=== PATIENT | male | born 1955 | race Caucasian/White ===

== ENCOUNTER 2018-11-26 06:23 | Inpatient (IN) | payer OTHER ==
[2018-11-23 12:39] VITALS: BMI 33.3
[2018-11-26] MEDS ORDERED: fentaNYL CITRATE 250 MCG/5 ML VIAL ONE (06:50)
[2018-11-26] MEDS ORDERED: ceFAZolin SODIUM 1 GM VIAL ONE ×4 (06:52→17:34)
[2018-11-26] MEDS ORDERED: VANCOMYCIN 1,000 MG VIAL (RESTRICTED TO ID ONLY) ONE ×2 (06:52→07:16)
[2018-11-26] MEDS ORDERED: ONDANSETRON 4 MG/2 ML VIAL ONE (06:52)
[2018-11-26] MEDS ORDERED: SUCCINYLCHOLINE CHLORIDE 200 MG/10 ML SYRINGE ONE (06:52)
[2018-11-26] MEDS ORDERED: PROPOFOL 20 ML ONE ×13 (06:52→10:21)
[2018-11-26] MEDS ORDERED: DEXAMETHASONE SOD PHOSPHATE 4 MG/1 ML VIAL ONE (06:52)
[2018-11-26] MEDS ORDERED: MIDAZOLAM HCL 2 MG/2 ML SINGLE DOSE VIAL ONE ×3 (06:52→07:16)
[2018-11-26] MEDS ORDERED: TRANEXAMIC ACID 1000 MG/10 ML VIAL ONE (06:52)
[2018-11-26] MEDS ORDERED: LIDOCAINE HCL/PF 2% SDV 5ML VIAL ONE (06:52)
[2018-11-26] MEDS ORDERED: CEFAZOLIN 2 GM/D5W 2 GM/50 ML ML IVPB ONE (07:01)
[2018-11-26] MEDS ORDERED: VANCOMYCIN 1 GRAM (PRE-DOCKED) 1,000 MG/250 ML BAG IVPB ONE (07:01)
[2018-11-26] MEDS ORDERED: MORPHINE 5 MG/10 ML AMP - FOR COMPOUNDING USE ONLY ONE (07:13)
[2018-11-26] MEDS ORDERED: BUPIVACAINE HCL/PF 0.5% (5MG/ML) 10 ML VIAL ONE (07:15)
[2018-11-26] MEDS ORDERED: BUPIVACAINE LIPOSOME/PF (EXPAREL) 266 MG/20 ML VIAL ONE (07:15)
[2018-11-26] MEDS ORDERED: NALOXONE HCL 0.4 MG/ML VIAL IVPUSH PRN (07:33)
[2018-11-26] MEDS ORDERED: ONDANSETRON 4 MG/2 ML VIAL IVPUSH PRN ×2 (07:33)
[2018-11-26] MEDS ORDERED: THROMBIN (BOVINE) 5,000 UNIT VIAL TP ONE ×3 (07:43→10:38)
[2018-11-26] MEDS ORDERED: HEPARIN NA (PORCINE) 5,000 UNITS/ML 1ML VIAL ONE ×3 (07:43→09:40)
[2018-11-26] MEDS: ACETAMINOPHEN 325 MG TABLET (FP) PO SCH ×3 (07:45→22:40)
[2018-11-26] MEDS ORDERED: VANCOMYCIN 1,000 MG VIAL (RESTRICTED TO ID ONLY) IVPB ONE (07:45)
[2018-11-26] MEDS ORDERED: ceFAZolin SODIUM 1 GM VIAL IVPB ONE ×3 (09:00→18:20)
[2018-11-26] MEDS ORDERED: ROCURONIUM BROMIDE 50 MG/5 ML SYRINGE ONE (09:39)
[2018-11-26] MEDS ORDERED: NEOSTIGMINE METHYLSULFATE 0.5 MG/1 ML - 10 ML MDV ONE (10:32)
[2018-11-26] MEDS ORDERED: GLYCOPYRROLATE 0.2 MG/1 ML VIAL ONE (10:33)
[2018-11-26] MEDS ORDERED: GELATIN, ABSORBABLE 12-7MM EACH SPONGE TP ONE (10:38)
[2018-11-26] MEDS ORDERED: SODIUM CHLORIDE 0.9% P/F 10 ML VIAL IJ ONE (11:19)
--- NOTE | 2018-11-26 13:00 | SURG ---
Surgery Postulant Note Postulant: Ricardo Mcclelland PA-C Date of Service: 11/26/18 Diagnosis: L4/5, L5/S1 Stenosis with instability; lower extremity radiculopathy Procedure: Lumbar laminectomy L4/5, L5/S1. Posterior Lumbar Interbody Fusion L5/S1. Instrumentation of Posterolateral Arthrodesis. Auto/Allograft. Left iliac crest bone marrow aspirate. Neuromonitoring. I was present for the entirety of the operative procedure. For further detail, please refer to operative report. Visit type - Case Type Case Type: Scheduled - New patient This patient is new to me today: Yes Date on this admission: 11/26/18
--- NOTE | 2018-11-26 13:13 | OP ---
Operative Note - Note: Operative Date: 11/26/18 Pre-Operative Diagnosis: L4/5 L5 L/S1 Stenosis with instability back pain Operation: L4/5/S1 Laminectomy. L5/S1 Posterior Lumbar Interbody Fusion. Instrumented Posterolateral Arthrodesis Auto/Allograft and BMAC. Last mobile segment L4/5 on Xray I am labelling this as L5/S1 Implants: [employer] Surgeon: Vance Boateng Agricultural Pilot: Ricardo Mcclelland Anesthesia: General Specimens Removed: L5/S1 Disc Estimated Blood Loss (mls): 400 Drains & Tubes with Location: Hemovac 06/05 Fluid Volume Replaced (mls): 1,500 Operative Report Dictated: Yes
[2018-11-26] MEDS: LACTATED RINGERS SOLUTION 1,000 ML IV SCH ×2 (15:45→16:39)
--- NOTE | 2018-11-26 16:06 | CONSULT ---
Consultation: REQUESTING PROVIDER: Tasneem CONSULT REQUEST: We have been asked to medically evaluate this patient for post op spine HISTORY OF PRESENT ILLNESS: 63 year old gentleman history of hypertension and hyperlipidemia brought to ICU post-operatively for L4/5/S1 Laminectomy. L5/S1 Posterior Lumbar Interbody Fusion. Instrumented Posterolateral Arthrodesis Auto/Allograft and BMAC done by Dr. Sher. Currently patient does not complain of any pain, chest pain, shortness of breath, nausea, vomiting or diarrhea. Prior to the surgery, patient reports that he had severe back pain that was preventing him from standing or ambulating. He currently has no numbness or tingling. Has not yet passed gas, but tolerated clear liquids. REVIEW OF SYSTEMS: CONSTITUTIONAL: Absent: fever, chills, diaphoresis, generalized weakness, malaise, loss of appetite, weight change HEENT: Absent: rhinorrhea, nasal congestion, throat pain, throat swelling, difficulty swallowing, mouth swelling, ear pain, eye pain, visual changes CARDIOVASCULAR: Absent: chest pain, syncope, palpitations, irregular heart rate, lightheadedness , peripheral edema RESPIRATORY: Absent: cough, shortness of breath, dyspnea with exertion, orthopnea, wheezing, stridor, hemoptysis GASTROINTESTINAL: Absent: abdominal pain, abdominal distension, nausea, vomiting, diarrhea, constipation, melena, hematochezia GENITOURINARY: Absent: dysuria, frequency, urgency, hesitancy, hematuria, flank pain, genital pain MUSCULOSKELETAL: Absent: myalgia, arthralgia, joint swelling, back pain, neck pain SKIN: Absent: rash, itching, pallor HEMATOLOGIC/IMMUNOLOGIC: Absent: easy bleeding, easy bruising, lymphadenopathy, frequent infections ENDOCRINE: Absent: unexplained weight gain, unexplained weight loss, heat intolerance, cold intolerance NEUROLOGIC: Absent: headache, focal weakness or paresthesias, dizziness, unsteady gait, seizure, mental status changes, bladder or bowel incontinence PSYCHIATRIC: Absent: anxiety, depression, suicidal or homicidal ideation, hallucinations. PHYSICAL EXAMINATION Vital Signs - 24 hr 11/26/18 11/26/18 11/26/18 07:15 07:18 07:26 Temperature 97.8 F 97.8 F 97.8 F Pulse Rate 69 69 69 Respiratory 20 20 20 Rate Blood Pressure 133/69 133/69 133/69 O2 Sat by Pulse Oximetry (%) 0711/26/18 11/26/18 07:38 12:40 12:55 Temperature 98.0 F 98.3 F Pulse Rate 81 98 H Respiratory 15 16 Rate Blood Pressure 109/68 106/62 O2 Sat by Pulse 96 99 100 Oximetry (%) 11/26/18 11/26/18 11/26/18 13:10 13:25 13:49 Temperature 97.8 F 98.2 F 98.2 F Pulse Rate 64 65 63 Respiratory 16 16 16 Rate Blood Pressure 113/63 111/62 111/65 O2 Sat by Pulse 100 100 Oximetry (%) 11/26/18 15:00 Temperature Pulse Rate Respiratory Rate Blood Pressure O2 Sat by Pulse 100 Oximetry (%) GENERAL: A&Ox3, no acute distress EYES: PERRLA, EOMI ENT: Moist mucus membranes NECK: No JVD LUNGS: CTA, no wheezes HEART: RRR, no murmurs ABDOMEN: Soft, nontender, BS diminished MUSCULOSKELETAL: No CVA Tenderness EXTREMITIES: 2+ pulses, no edema. NEUROLOGICAL: Cranial nerves II-XII intact. No deficits. Drain in place ~ 150cc serosanguinous fluid Laboratory Results - last 24 hr 11/26/18 11/26/18 06:33 08:10 Blood Type B POSITIVE B POSITIVE Antibody Screen Negative Active Medications Generic Name Dose Route Start Last Admin Trade Name Freq PRN Reason Stop Dose Admin Acetaminophen 650 mg 11/26/18 07:45 Tylenol - PO Q6H NURYS Atorvastatin Calcium 40 mg 11/26/18 22:00 Lipitor - PO HS NURYS Diphenhydramine HCl 25 mg 11/26/18 07:33 Benadryl Injection - IVPUSH ONCE PRN FOR ITCHING Fentanyl 50 mcg 11/26/18 07:33 Sublimaze Injection - IVPUSH [id number] PRN PAIN-PACU ORDER X 4 DOSES ONLY Lactated Ringer's 1,000 mls @ 75 mls/hr 11/26/18 07:45 Lactated Ringers Solution IV ASDIR NURYS Lactated Ringer's 1,000 mls @ 125 mls/hr 11/26/18 12:45 Lactated Ringers Solution IV ASDIR NURYS Cefazolin Sodium 1 gm/ 50 mls @ 100 mls/hr 11/26/18 18:00 Dextrose IVPB 11/27/18 17:59 Q8H-IV NURYS Losartan Potassium 25 mg 11/27/18 10:00 Cozaar - PO DAILY NURYS Naloxone HCl 0.4 mg 11/26/18 07:33 Narcan - IVPUSH ONCE PRN Sedation Ondansetron HCl 4 mg 11/26/18 07:33 Zofran Injection IVPUSH ONCE PRN NAUSEA Ondansetron HCl 4 mg 11/26/18 07:33 Zofran Injection IVPUSH Q6H PRN NAUSEA AND/OR VOMITING Oxycodone HCl 5 mg 11/27/18 07:33 Roxicodone - PO Q3H PRN Mild Pain 1-3 Oxycodone HCl 10 mg 11/27/18 07:33 Roxicodone - PO Q3H PRN Moderate Pain 4-6 Oxycodone HCl 10 mg 11/26/18 10:00 Oxycontin - PO BID NURYS ASSESSMENT/PLAN: 63 year old gentleman history of hypertension and hyperlipidemia brought to ICU post-operatively L4/5/S1 Laminectomy. L5/S1 Posterior Lumbar Interbody Fusion. Instrumented Posterolateral Arthrodesis Auto/Allograft and BMAC done by Dr. Sher. Neurological -post op spine surgery, reccs by Dr. Sher -Drain in place -pain management, although no pain at the moment Cardiovascular -hypertension controlled on losartan Pulmonary -no active issues Gastrointestinal -no gas, but patient has been tolerating diet Renal -no active issues Dispo: Can likely downgrade to floor, will d/w Dr. sher Visit type - Emergency Visit Emergency Visit: Yes ED Registration Date: 11/26/18 Care time: The patient presented to the Emergency Department on the above date and was hospitalized for further evaluation of their emergent condition. - New Patient This patient is new to me today: Yes Date on this admission: 11/26/18 - Critical Care Critical Care patient: Yes Total Critical Care Time (in minutes): 36 Critical Care Statement: The care of this patient involved high complexity decision making to prevent further life threatening deterioration of the patient 's condition and/or to evaluate & treat vital organ system(s) failure or risk of failure.
[2018-11-26] MEDS: oxyCODONE HCL 10 MG SUSTAINED ACTING TABLET PO SCH ×2 (16:38→22:38)
[2018-11-26] MEDS ORDERED: DEXTROSE 5%-WATER - 50 ML IVPB ONE (17:34)
[2018-11-26] MEDS: CEFAZOLIN 1 GM in DEXTROSE 5%-WATER - 50 ML IVPB SCH (17:44)
[2018-11-26] MEDS ORDERED: METOCLOPRAMIDE HCL INJECTION 10 MG/2 ML VIAL IVPUSH ONE (18:15)
--- NOTE | 2018-11-26 19:51 | OP ---
DATE OF OPERATION: 11/26/2018 SURGEON: Vance Boateng MD CAREER DEVELOPMENT FACILITATOR: MAGED Arizmendi PREOPERATIVE DIAGNOSIS: Spinal stenosis, L3, 4, and 5; with questionable fusion at L5-S1. POSTOPERATIVE DIAGNOSIS: Spinal stenosis, L3, 4, and 5; with instability at L3-4-5-S1. OPERATION PERFORMED: 1. Left laminectomy with undercutting facetectomy, L3-4-5. 2. Right laminectomy with facetectomy, L3-4-5. 3. Posterior lumbar interbody fusion with interbody cage, L4-5. 4. Pedicle screw instrumentation, L3-4-5, left and right-hand side. 5. Posterolateral arthrodesis, L3-4-5-S1, left and right-hand side. 6. Complex wound closure of 25 cm. 7. Use of biplane fluoroscopy intraoperative neuromonitoring as well as aspiration of bone marrow aspirate concentrate. ANESTHESIA: general. ANTIBIOTICS GIVEN: Kefzol 2 g, vancomycin 1 g preoperative. OPERATION DETAILS: Patient correctly identified, brought in to the operating room, placed prone on a Eris table. The lumbar spine was prepped and draped in the routine manner with Betadine scrub solution, wiped off with alcohol, DuraPrep applied. Timeout was called. Imaging was available for intraoperative evaluation. Antibiotics were given, 2 g Kefzol and 1 g vancomycin, 1 g of tranexamic acid given. Another 1 g of Kefzol was given intraoperatively at the time of seating the instrumentation. A midline incision utilized from the tip of the spinous process of L2 to S1. The dissection was taken subperiosteally down the spinous process of the facet joints to expose the transverse processes of L3-4-5-S1. Intraoperative x-rays revealed the appropriate areas for fusion. Further dissection revealed that the L5-S1 complex was solidly auto-fused. There was absolutely no movement. This area, however, was decompressed as well. Effectively, in counting, we began to count the L5 as S1, so the fusion therefore was an L4-5-S1 fusion, but autologous bone graft was placed into the L5-S1 interspace as well to ensure that this fusion remains solid. Laminectomies of L5 and 4 and partial 3 were performed. The entire theca was completely freed by the use of Leksell rongeurs both on the left and right-hand side. A superior facetectomy was facilitated and performed at L4 and L5 as well as partially at L3. This was done using Leksell rongeurs, Kerrison up cuts to free the bone posteriorly and then the inferior facets and pars interarticularis were imploded into the vertebral canal at L4 and L5, both left and right-hand side, thus freeing the entire theca as well as the appropriate neural elements throughout. At L5-S1, the mobile disk was identified. A retraction of the theca was performed using a simple nerve root retractor. An annulotomy was performed into the L5-S1 annulus. The disk was shaved using ravi, pituitary rongeurs, and serrated curettes. The entire disk was removed right down to healthy endplate. The interbody space was packed with bone graft. This was the bone that was harvested from the posterior elements, removed in a mill. Once the packings were complete, the cage measuring size 11/40 LnK, which itself was packed with bone, was then gently driven into the interspace between L5 and S1, and driven all the way deep into the space and verified on lateral fluoroscopic x-ray. The fluoroscopic x-ray also helped with positioning of screws on the endplates. Each pedicle was drilled with 4.5 drill. Each one was palpated with a ball-tip feeler. Screws measured 40 x 6.5, screws effectively L4-5-S1, and the main picture of this could be adjusted, in radiological terms, to L3-4-5. This depends on the interpretation of the last mobile segment. The screws were tested completely safe in terms of neuromonitoring numbers. The screws were inserted. The rods were applied to the tulips of the screw heads and fixed with the appropriate caps. The torque device was utilized, 1 crosslink applied. This provided a complete solid fusion of L4-5-S1. The interspace intertransverse plane, L4-5-S1, was packed with autologous as well as expanded allograft bone into the intertransverse plane. The aspirate was left posterior ilium. This was spun down for the CD34 cells, and helped pack this material into the posterior intertransverse plane. The wounds were thoroughly lavaged. The muscle was appropriately trimmed to get rid of fibrillated muscle. Closure with muscle 1 Vicryl, fascia 1 Vicryl, subcutaneous 1 and 2-0 Vicryl, skin terry. Drainage: A 1/8-inch Hemovac x1 inserted. OVERALL COMMENTS: Operation went smoothly without any complications. Tight stenosis encountered. MD HUNTER Rivera/[id number]
[2018-11-26] MEDS ORDERED: ATORVASTATIN CA 40 MG TABLET (FP) PO SCH (22:00)
[2018-11-27] MEDS ORDERED: DEXTROSE 5%-WATER - 50 ML IVPB ONE ×2 (01:49→08:39)
[2018-11-27] MEDS ORDERED: ceFAZolin SODIUM 1 GM VIAL ONE ×2 (01:49→08:38)
[2018-11-27] MEDS: ACETAMINOPHEN 325 MG TABLET (FP) PO SCH ×4 (01:58→20:03)
[2018-11-27] MEDS: CEFAZOLIN 1 GM in DEXTROSE 5%-WATER - 50 ML IVPB SCH ×2 (01:59→09:28)
[2018-11-27] MEDS: LACTATED RINGERS SOLUTION 1,000 ML IV SCH ×2 (02:00→12:16)
[2018-11-27 06:19] LABS: HEMATOCRIT 40.4 % (35.4-49); HEMOGLOBIN 12.7 GM/dL (11.7-16.9); MCH 24.7 pg (25.7-33.7); MCHC 31.5 g/dl (32.0-35.9); MEAN CELL VOLUME 78.4 fl (80-96); MEAN PLT VOLUME 8.8 fl (7.5-11.1); PLATELET COUNT 230 K/MM3 (134-434); RBC 5.15 M/mm3 (4.00-5.60); RDW 14.2 % (11.9-15.9); WHITE BLOOD COUNT 15.1 K/mm3 (4.0-10.0)
[2018-11-27 06:48] LABS: BLOOD UREA NITROGEN 9.8 mg/dL (7-18); CREATININE 0.6 mg/dL (0.55-1.3); POTASSIUM 3.9 mmol/L (3.5-5.1)
[2018-11-27] MEDS ORDERED: oxyCODONE HCL 5 MG TABLET PO PRN ×5 (07:33→16:47)
--- NOTE | 2018-11-27 08:10 | SPA.POSTOP ---
- POST-OP NOTE POD #1 s/p Lumbar laminectomy L4/5, L5/S1. Posterior Lumbar Interbody Fusion L5/S1. Instrumentation of Posterolateral Arthrodesis. Auto/Allograft. Left iliac crest bone marrow aspirate. Neuromonitoring. No acute events since surgical procedure per RN notes. In bed with HOB at 15 degrees. C/o COLVIN since he awoke this morning. ICU Resident states he administered Tylenol PO about 2 hours ago...no relief. Has mild incisional tenderness. Pain is 4/10. Pain managed well via pre-op block by anasthesia followed by Juan spinal. Denies n/v/f/c, CP, palpitations or photophobia. Denies h/o migraines or auras. Last Vital Signs Temp Pulse Resp BP Pulse Ox 98.2 F 73 15 127/68 100 11/26/18 13:49 11/26/18 22:00 11/26/18 22:00 11/27/18 06:00 11/26/18 21:00 CBC, BMP 11/27/18 05:51 11/27/18 05:51 OUTPUT TREND 11/26/18 11/26/18 11/26/18 11/27/18 16:01 18:54 19:09 06:36 Hemovac 95 0 Snider 250 250 700 General: No acute distress. Pulm: CTA bilat Cor: RRR Abd: Soft. Non-tender. No distention Back: Dressing c/d/i. Hemovac on suction. No hematoma : Snider to gravity Neuro: GMNVI bilat LE: Soft, non-tender bilat. SCD's bilat. Problem List - Problems (1) Degenerative lumbar spinal stenosis Assessment/Plan: POD #1 s/p Lumbar laminectomy L4/5, L5/S1. Posterior Lumbar Interbody Fusion L5/ S1. Instrumentation of Posterolateral Arthrodesis. Auto/Allograft. Left iliac crest bone marrow aspirate. Neuromonitoring. Anasthesia for continued pain management Tylenol for fever > 100.3F Monitor COLVIN DVT PPX via bilat SCDs Incentive Spirometer Case Management for possible Rehab placement Physical Therapy I/Os f/u Lumbar Xray OOB to chair with assist Code(s): M48.061 - SPINAL STENOSIS, LUMBAR REGION WITHOUT NEUROGENIC ROLAN (2) HTN (hypertension) Code(s): I10 - ESSENTIAL (PRIMARY) HYPERTENSION (3) Hyperlipidemia Code(s): E78.5 - HYPERLIPIDEMIA, UNSPECIFIED Visit type - Case Type Case Type: Scheduled
[2018-11-27] MEDS: oxyCODONE HCL 10 MG SUSTAINED ACTING TABLET PO SCH ×2 (09:28→21:51)
[2018-11-27] MEDS: oxyCODONE HCL 5 MG TABLET PO PRN ×3 (09:35→17:47)
[2018-11-27] MEDS ORDERED: LOSARTAN POTASSIUM 25 MG TABLET PO SCH (10:00)
[2018-11-27] MEDS ORDERED: diazePAM 5 MG TABLET PO ONE (12:01)
--- NOTE | 2018-11-27 12:17 | PN ---
Progress Note, Physician Chief Complaint: C/O back pain denies chest pain, palpitations, nausea, vomiting, diarrhea - Current Medication List Current Medications: Active Medications Acetaminophen (Tylenol -) 650 mg PO Q6H [facility] Last Admin: 11/27/18 01:58 Dose: Not Given Atorvastatin Calcium (Lipitor -) 40 mg PO HS [facility] Last Admin: 11/26/18 22:38 Dose: 40 mg Diphenhydramine HCl (Benadryl Injection -) 25 mg IVPUSH ONCE PRN PRN Reason: FOR ITCHING Fentanyl (Sublimaze Injection -) 50 mcg IVPUSH [id number] PRN PRN Reason: PAIN-PACU ORDER X 4 DOSES ONLY Lactated Ringer's (Lactated Ringers Solution) 1,000 mls @ 125 mls/hr IV ASDIR [facility] Last Admin: 11/26/18 15:45 Dose: 125 mls/hr Cefazolin Sodium 1 gm/ (Dextrose) 50 mls @ 100 mls/hr IVPB Q8H-IV [facility] Stop: 11/27/18 17:59 Last Admin: 11/27/18 09:28 Dose: 100 mls/hr Losartan Potassium (Cozaar -) 25 mg PO DAILY [facility] Last Admin: 11/27/18 09:28 Dose: 25 mg Naloxone HCl (Narcan -) 0.4 mg IVPUSH ONCE PRN PRN Reason: Sedation Ondansetron HCl (Zofran Injection) 4 mg IVPUSH ONCE PRN PRN Reason: NAUSEA Ondansetron HCl (Zofran Injection) 4 mg IVPUSH Q6H PRN PRN Reason: NAUSEA AND/OR VOMITING Oxycodone HCl (Roxicodone -) 5 mg PO Q3H PRN PRN Reason: Mild Pain 1-3 Last Admin: 11/27/18 06:00 Dose: 5 mg Oxycodone HCl (Roxicodone -) 10 mg PO Q3H PRN PRN Reason: Moderate Pain 4-6 Last Admin: 11/27/18 09:35 Dose: 10 mg Oxycodone HCl (Oxycontin -) 10 mg PO BID [facility] Last Admin: 11/27/18 09:28 Dose: 10 mg - Objective Vital Signs: Vital Signs Temperature 99.3 F 11/27/18 10:15 Pulse Rate 80 11/27/18 10:15 Respiratory Rate 16 11/27/18 10:15 Blood Pressure 114/58 L 11/27/18 10:15 O2 Sat by Pulse Oximetry (%) 99 11/27/18 09:00 Constitutional: Yes: Well Nourished, No Distress Eyes: Yes: WNL HENT: Yes: WNL Neck: Yes: Tenderness Cardiovascular: Yes: WNL Respiratory: Yes: WNL Gastrointestinal: Yes: WNL Genitourinary: Yes: WNL Musculoskeletal: Yes: Back Pain Extremities: Yes: WNL Edema: No Peripheral Pulses WNL: Yes Integumentary: Yes: WNL Wound/Incision: Yes: Clean/Dry, Well Approximated, Dressing Dry and Intact Neurological: Yes: WNL ...Motor Strength: WNL Psychiatric: Yes: WNL Labs: CBC, BMP 11/27/18 05:51 11/27/18 05:51 Assessment/Plan POD #1 s/p Lumbar laminectomy L4/5, L5/S1. Posterior Lumbar Interbody Fusion L5/ S1. Instrumentation of Posterolateral Arthrodesis. Auto/Allograft. Left iliac crest bone marrow aspirate. cont pain management. incentive spirometry. cont oxycodone, tylenol. -GI, DVT prophylaxis. -low anion gap: from reduced protein intake. -HTN: on losartan. -ondasteron PRN for nausea -PT/OT/OOB as tolerated -oral diet. no BM. colace, senna added. -
--- NOTE | 2018-11-27 12:19 | PN ---
Progress Note, Physician Chief Complaint: C/O back pain denies chest pain, palpitations, nausea, vomiting, diarrhea - Current Medication List Current Medications: Active Medications Acetaminophen (Tylenol -) 650 mg PO Q6H [facility] Last Admin: 11/27/18 01:58 Dose: Not Given Atorvastatin Calcium (Lipitor -) 40 mg PO HS [facility] Last Admin: 11/26/18 22:38 Dose: 40 mg Diphenhydramine HCl (Benadryl Injection -) 25 mg IVPUSH ONCE PRN PRN Reason: FOR ITCHING Fentanyl (Sublimaze Injection -) 50 mcg IVPUSH [id number] PRN PRN Reason: PAIN-PACU ORDER X 4 DOSES ONLY Lactated Ringer's (Lactated Ringers Solution) 1,000 mls @ 125 mls/hr IV ASDIR [facility] Last Admin: 11/27/18 12:16 Dose: 125 mls/hr Cefazolin Sodium 1 gm/ (Dextrose) 50 mls @ 100 mls/hr IVPB Q8H-IV [facility] Stop: 11/27/18 17:59 Last Admin: 11/27/18 09:28 Dose: 100 mls/hr Losartan Potassium (Cozaar -) 25 mg PO DAILY [facility] Last Admin: 11/27/18 09:28 Dose: 25 mg Naloxone HCl (Narcan -) 0.4 mg IVPUSH ONCE PRN PRN Reason: Sedation Ondansetron HCl (Zofran Injection) 4 mg IVPUSH ONCE PRN PRN Reason: NAUSEA Ondansetron HCl (Zofran Injection) 4 mg IVPUSH Q6H PRN PRN Reason: NAUSEA AND/OR VOMITING Oxycodone HCl (Roxicodone -) 5 mg PO Q3H PRN PRN Reason: Mild Pain 1-3 Last Admin: 11/27/18 06:00 Dose: 5 mg Oxycodone HCl (Roxicodone -) 10 mg PO Q3H PRN PRN Reason: Moderate Pain 4-6 Last Admin: 11/27/18 09:35 Dose: 10 mg Oxycodone HCl (Oxycontin -) 10 mg PO BID [facility] Last Admin: 11/27/18 09:28 Dose: 10 mg - Objective Vital Signs: Vital Signs Temperature 99.3 F 11/27/18 10:15 Pulse Rate 80 11/27/18 10:15 Respiratory Rate 16 11/27/18 10:15 Blood Pressure 114/58 L 11/27/18 10:15 O2 Sat by Pulse Oximetry (%) 99 11/27/18 09:00 Constitutional: Yes: Well Nourished Eyes: Yes: WNL HENT: Yes: WNL Neck: Yes: WNL Cardiovascular: Yes: WNL Respiratory: Yes: WNL Gastrointestinal: Yes: WNL Genitourinary: Yes: WNL Musculoskeletal: Yes: Back Pain Extremities: Yes: WNL Edema: No Peripheral Pulses WNL: Yes Integumentary: Yes: WNL Wound/Incision: Yes: Clean/Dry, Well Approximated Neurological: Yes: WNL ...Motor Strength: WNL Psychiatric: Yes: WNL Labs: CBC, BMP 11/27/18 05:51 11/27/18 05:51 Assessment/Plan POD #1 s/p Lumbar laminectomy L4/5, L5/S1. Posterior Lumbar Interbody Fusion L5/ S1. Instrumentation of Posterolateral Arthrodesis. Auto/Allograft. Left iliac crest bone marrow aspirate.
[2018-11-27] MEDS ORDERED: CYCLOBENZAPRINE HCL 10 MG TABLET (FP) PO ONE (12:37)
[2018-11-27] MEDS ORDERED: MORPHINE SULFATE 2 MG/ML VIAL IVPUSH ONE (12:45)
--- NOTE | 2018-11-27 12:51 | PN ---
Teaching Attending Note Name of Resident: Frank Hare ATTENDING PHYSICIAN STATEMENT I saw and evaluated the patient. I reviewed the resident's note and discussed the case with the resident. I agree with the resident's findings and plan as documented. SUBJECTIVE: Patient seen and examined in the ICU. Awake and alert. Significant discomfort behind his head into his neck. Feels like muscle tension. No CP or SOB. Intake & Output 11/24/18 11/25/18 11/26/18 11/27/18 23:59 23:59 23:59 23:59 Intake Total 2175 1046 Output Total 1295 700 Balance 880 346 Last Vital Signs Temp Pulse Resp BP Pulse Ox 99.3 F 88 16 130/86 99 11/27/18 10:15 11/27/18 12:00 11/27/18 12:00 11/27/18 12:00 11/27/18 09:00 Active Medications Acetaminophen (Tylenol -) 650 mg PO Q6H [facility] Last Admin: 11/27/18 01:58 Dose: Not Given Atorvastatin Calcium (Lipitor -) 40 mg PO HS [facility] Last Admin: 11/26/18 22:38 Dose: 40 mg Diphenhydramine HCl (Benadryl Injection -) 25 mg IVPUSH ONCE PRN PRN Reason: FOR ITCHING Docusate Sodium (Colace -) 100 mg PO TID [facility] Fentanyl (Sublimaze Injection -) 50 mcg IVPUSH [id number] PRN PRN Reason: PAIN-PACU ORDER X 4 DOSES ONLY Lactated Ringer's (Lactated Ringers Solution) 1,000 mls @ 125 mls/hr IV ASDIR [facility] Last Admin: 11/27/18 12:16 Dose: 125 mls/hr Cefazolin Sodium 1 gm/ (Dextrose) 50 mls @ 100 mls/hr IVPB Q8H-IV [facility] Stop: 11/27/18 17:59 Last Admin: 11/27/18 09:28 Dose: 100 mls/hr Losartan Potassium (Cozaar -) 25 mg PO DAILY [facility] Last Admin: 11/27/18 09:28 Dose: 25 mg Naloxone HCl (Narcan -) 0.4 mg IVPUSH ONCE PRN PRN Reason: Sedation Ondansetron HCl (Zofran Injection) 4 mg IVPUSH ONCE PRN PRN Reason: NAUSEA Ondansetron HCl (Zofran Injection) 4 mg IVPUSH Q6H PRN PRN Reason: NAUSEA AND/OR VOMITING Oxycodone HCl (Roxicodone -) 5 mg PO Q3H PRN PRN Reason: Mild Pain 1-3 Last Admin: 11/27/18 06:00 Dose: 5 mg Oxycodone HCl (Roxicodone -) 10 mg PO Q3H PRN PRN Reason: Moderate Pain 4-6 Last Admin: 11/27/18 09:35 Dose: 10 mg Oxycodone HCl (Oxycontin -) 10 mg PO BID [facility] Last Admin: 11/27/18 09:28 Dose: 10 mg Oxycodone HCl (Roxicodone -) 15 mg PO Q3H PRN PRN Reason: PAIN LEVEL 7 - 10 Senna (Senna -) 2 tab PO HS PRN PRN Reason: CONSTIPATION GENERAL: Awake and alert, uncomfortable due to pain EYES: PERRLA, EOMI ENT: Moist mucus membranes NECK: No JVD LUNGS: CTA, no wheezes HEART: RRR, no murmurs ABDOMEN: Soft, nontender, BS diminished MUSCULOSKELETAL: No CVA Tenderness EXTREMITIES: 2+ pulses, no edema. NEUROLOGICAL: Non-focal Laboratory Results - last 24 hr 11/27/18 11/27/18 05:51 05:51 WBC 15.1 H RBC 5.15 Hgb 12.7 Hct 40.4 MCV 78.4 L MCH 24.7 L MCHC 31.5 L RDW 14.2 Plt Count 230 MPV 8.8 Sodium 137 Potassium 3.9 Chloride 103 Carbon Dioxide 28 Anion Gap 6 L BUN 9.8 Creatinine 0.6 Est GFR (CKD-EPI)AfAm 123.15 Est GFR (CKD-EPI)NonAf 106.25 Random Glucose 87 Calcium 8.0 L ASSESSMENT/PLAN: POD #1 L4/5/S1 Laminectomy. L5/S1 Posterior Lumbar Interbody Fusion. Instrumented Posterolateral Arthrodesis Auto/Allograft and BMAC Hypertension Hyperlipidemia Pain control Trial of Valium O2 as needed Incentive Spirometry Monitor drain output PO as tolerated D/C prado when OOB VTE prophylaxis PT Floor when cleared by surgery Dr Vargas
[2018-11-27] MEDS ORDERED: DOCUSATE SODIUM 100 MG CAPSULE (FP) PO SCH ×2 (14:00→22:00)
--- NOTE | 2018-11-27 14:45 | PN ---
Physical Exam: SUBJECTIVE: Patient seen and examined at the bedside. Patient complained of tight neck pain 9/10. Denied any back pain, headaches, dizziness, weakness, numbness, tingling, visual changes, nausea, vomiting, chest pain, palpitations, sob. OBJECTIVE: Vital Signs Period Temp Pulse Resp BP Sys/[place] Pulse Ox Last 24 Hr 99 F-99.3 F 64-98 15-20 102-130/53-86 99-100 GENERAL: The patient is awake, alert, and fully oriented, in mild distress due to pain. HEAD: Normal with no signs of trauma. EYES: PERRL, extraocular movements intact, sclera anicteric, conjunctiva clear. No ptosis. NECK: Limited range of motion due to patient pain. Trachea midline, supple. LUNGS: Breath sounds equal, clear to auscultation bilaterally, no wheezes, no crackles, no accessory muscle use. HEART: Regular rate and rhythm, S1, S2 without murmur, rub or gallop. ABDOMEN: Soft, nontender, nondistended, normoactive bowel sounds, no guarding, no rebound, no hepatosplenomegaly, no masses. EXTREMITIES: 2+ pulses, warm, well-perfused, no edema. NEUROLOGICAL: Cranial nerves II through XII grossly intact. 5/5 muscle strength throughout, no sensory deficits. Normal speech, gait not observed. PSYCH: Normal mood, normal affect. SKIN: Back dressing intact, site of incisions clean. Drain from site with 95 cc drainage. Warm, dry, normal turgor Laboratory Results - last 24 hr 11/27/18 11/27/18 05:51 05:51 WBC 15.1 H RBC 5.15 Hgb 12.7 Hct 40.4 MCV 78.4 L MCH 24.7 L MCHC 31.5 L RDW 14.2 Plt Count 230 MPV 8.8 Sodium 137 Potassium 3.9 Chloride 103 Carbon Dioxide 28 Anion Gap 6 L BUN 9.8 Creatinine 0.6 Est GFR (CKD-EPI)AfAm 123.15 Est GFR (CKD-EPI)NonAf 106.25 Random Glucose 87 Calcium 8.0 L Active Medications Generic Name Dose Route Start Last Admin Trade Name Freq PRN Reason Stop Dose Admin Acetaminophen 650 mg 11/26/18 07:45 11/27/18 13:48 Tylenol - PO 650 mg Q6H NURYS Administration Atorvastatin Calcium 40 mg 11/26/18 22:00 11/26/18 22:38 Lipitor - PO 40 mg HS NURYS Administration Diphenhydramine HCl 25 mg 11/26/18 07:33 Benadryl Injection - IVPUSH ONCE PRN FOR ITCHING Docusate Sodium 100 mg 11/27/18 14:00 11/27/18 13:48 Colace - PO 100 mg TID NURYS Administration Fentanyl 50 mcg 11/26/18 07:33 Sublimaze Injection - IVPUSH [id number] PRN PAIN-PACU ORDER X 4 DOSES ONLY Lactated Ringer's 1,000 mls @ 125 mls/hr 11/26/18 12:45 11/27/18 12:16 Lactated Ringers Solution IV 125 mls/hr ASDIR NURYS Administration Cefazolin Sodium 1 gm/ 50 mls @ 100 mls/hr 11/26/18 18:00 11/27/18 09:28 Dextrose IVPB 11/27/18 17:59 100 mls/hr Q8H-IV NURYS Administration Losartan Potassium 25 mg 11/27/18 10:00 11/27/18 09:28 Cozaar - PO 25 mg DAILY NURYS Administration Naloxone HCl 0.4 mg 11/26/18 07:33 Narcan - IVPUSH ONCE PRN Sedation Ondansetron HCl 4 mg 11/26/18 07:33 Zofran Injection IVPUSH ONCE PRN NAUSEA Ondansetron HCl 4 mg 11/26/18 07:33 Zofran Injection IVPUSH Q6H PRN NAUSEA AND/OR VOMITING Oxycodone HCl 5 mg 11/27/18 07:33 11/27/18 06:00 Roxicodone - PO 5 mg Q3H PRN Administration Mild Pain 1-3 Oxycodone HCl 10 mg 11/27/18 07:33 11/27/18 13:49 Roxicodone - PO 10 mg Q3H PRN Administration Moderate Pain 4-6 Oxycodone HCl 10 mg 11/26/18 10:00 11/27/18 09:28 Oxycontin - PO 10 mg BID NURYS Administration Oxycodone HCl 15 mg 11/27/18 12:42 Roxicodone - PO Q3H PRN PAIN LEVEL 7 - 10 Senna 2 tab 11/27/18 22:00 Senna - PO HS PRN CONSTIPATION ASSESSMENT/PLAN: Grazyna Quintero is a 63 year old male with a PMHx of HTN and HLD brought to ICU post-operatively for L4/5/S1 Laminectomy for monitoring. NEURO - post-op patient physical exam within normal limits - neurological exam every shift - pain management protocol in place for pain - Valium and Flexeril for neck spasms - lumbar spine x-ray s/p fusion - early ambulation - follow recommendations of surgery team CARDIO - continue home losartan - continue home atorvastatin RESPIRATORY - incentive spirometry prophylaxis RENAL - stable GI - monitor for passing of flatus - senna - colace - prado in place - to be removed when patient out of bed HEMATOLOGY - elevated WBC likely due to post-op reaction ID - post op cefazolin prophylaxis FEN - no fluids - electrolytes within normal limites - regular diet Prophylaxis - early ambulation DISPO - stable for transfer to med-surg Problem List - Problems (1) Degenerative lumbar spinal stenosis Code(s): M48.061 - SPINAL STENOSIS, LUMBAR REGION WITHOUT NEUROGENIC ROLAN (2) HTN (hypertension) Code(s): I10 - ESSENTIAL (PRIMARY) HYPERTENSION (3) Hyperlipidemia Code(s): E78.5 - HYPERLIPIDEMIA, UNSPECIFIED Visit type - Emergency Visit Emergency Visit: No - New Patient This patient is new to me today: Yes Date on this admission: 11/27/18 - Critical Care Critical Care patient: Yes Total Critical Care Time (in minutes): 36 Critical Care Statement: The care of this patient involved high complexity decision making to prevent further life threatening deterioration of the patient 's condition and/or to evaluate & treat vital organ system(s) failure or risk of failure.
[2018-11-27] MEDS ORDERED: ONDANSETRON 4 MG/2 ML VIAL IVPUSH PRN ×2 (16:47→17:26)
--- NOTE | 2018-11-27 17:14 | PATH ---
Surgical Pathology Report Patient Name: KAM OCAMPO [facility]. Rec. #: [id number] /Age/Gender: 1955 (Age: 63) / M Account: [id number] Location: [facility] LABEL SEWER Taken: 11/26/2018 Received: 11/26/2018 Reported: 11/27/2018 Physicians: Vance Boateng M.D. Specimen(s) Received DISC L4-L5-S1 Clinical History Spinal stenosis Final Diagnosis DISC, L4-5, S1, POSTERIOR INTERBODY FUSION: BENIGN INTERVERTEBRAL DISC TISSUE. Electronically Signed Rosa Graves M.D. Gross Description Received in formalin labeled "disc L4-L5," is a 3.0 x 2.5 x 0.3 cm aggregate of barrios and fragments of fibrocartilaginous tissue. A health and safety representative portion is submitted in one cassette. DL/11/26/2018 saudi11/26/2018
[2018-11-27] MEDS ORDERED: ACETAMINOPHEN 325 MG TABLET (FP) PO SCH (19:45)
[2018-11-27] MEDS: DOCUSATE SODIUM 100 MG CAPSULE (FP) PO SCH (21:51)
[2018-11-27] MEDS: ATORVASTATIN CA 40 MG TABLET (FP) PO SCH (21:51)
[2018-11-27] MEDS ORDERED: oxyCODONE HCL 10 MG SUSTAINED ACTING TABLET PO SCH (22:00)
[2018-11-27] MEDS ORDERED: ATORVASTATIN CA 40 MG TABLET (FP) PO SCH (22:00)
[2018-11-27] MEDS ORDERED: SENNOSIDES 8.6MG TABLET (FP) PO PRN ×3 (22:00)
[2018-11-28] MEDS: oxyCODONE HCL 5 MG TABLET PO PRN ×5 (01:32→19:36)
[2018-11-28] MEDS: ACETAMINOPHEN 325 MG TABLET (FP) PO SCH ×4 (02:22→19:38)
[2018-11-28] MEDS: DOCUSATE SODIUM 100 MG CAPSULE (FP) PO SCH ×3 (06:15→22:21)
--- NOTE | 2018-11-28 07:41 | SPA.POSTOP ---
- POST-OP NOTE POD #2 s/p Lumbar laminectomy L4/5, L5/S1. Posterior Lumbar Interbody Fusion L5/S1. Instrumentation of Posterolateral Arthrodesis. Auto/Allograft. Left iliac crest bone marrow aspirate. Neuromonitoring. No acute events over past 24 hours per RN notes. Patient transferred out of ICU to 6th floor Currently, sitting in chair at bedside. C/o incisional tenderness. Pain managed well via pre-op block by anasthesia followed by Duramorph spinal. Yesterday, patient c/o of severe COLVIN/neck pain...he felt more muscular in nature. This morning, feels much better as the COLVIN and neck pain almost resolved. He has gotten OOB and ambulated to doorway. Denies n/v/f/c, CP, palpitations or photophobia. Denies h/o migraines or auras. Last Vital Signs Temp Pulse Resp BP Pulse Ox 98.2 F 80 18 132/77 94 L // 03:00 // 03:00 11/28/18 03:00 11/28/18 03:00 // 22:00 General: No acute distress. Pulm: CTA bilat Cor: RRR Abd: Soft. Non-tender. No distention Back: Dressing c/d/i. Hemovac on suction w/ minimal output. No hematoma : Snider to gravity (clear) Neuro: GMNVI bilat LE: Soft, non-tender bilat. SCD's bilat. Problem List - Problems (1) Degenerative lumbar spinal stenosis Assessment/Plan: POD #2 s/p Lumbar laminectomy L4/5, L5/S1. Posterior Lumbar Interbody Fusion L5/ S1. Instrumentation of Posterolateral Arthrodesis. Auto/Allograft. Left iliac crest bone marrow aspirate. Neuromonitoring. Anasthesia for continued pain management Tylenol for fever > 100.3F DVT PPX via bilat SCDs Incentive Spirometer Case Management for possible Rehab placement Physical Therapy Radha dc'd on rounds OOB to chair Above plan discussed with Dr. Vance Boateng and agrees Code(s): M48.061 - SPINAL STENOSIS, LUMBAR REGION WITHOUT NEUROGENIC ROLAN (2) HTN (hypertension) Code(s): I10 - ESSENTIAL (PRIMARY) HYPERTENSION (3) Hyperlipidemia Code(s): E78.5 - HYPERLIPIDEMIA, UNSPECIFIED Visit type - Case Type Case Type: Scheduled
[2018-11-28] MEDS: LOSARTAN POTASSIUM 25 MG TABLET PO SCH (09:06)
[2018-11-28] MEDS: oxyCODONE HCL 10 MG SUSTAINED ACTING TABLET PO SCH ×2 (09:07→22:21)
[2018-11-28] MEDS ORDERED: LOSARTAN POTASSIUM 25 MG TABLET PO SCH (10:00)
--- NOTE | 2018-11-28 11:25 | PN ---
Progress Note (short form) - Note Progress Note: Post op day@.S/P L3-L5 Decompression with fusion under GA with TLIP block uneventful.Patient stable.No any anesthesia related problem.Patient Dc from the anesthesia care.
--- NOTE | 2018-11-28 16:01 | PN ---
Progress Note, Physician Chief Complaint: C/O back pain denies chest pain, palpitations, nausea, vomiting, diarrhea - Current Medication List Current Medications: Active Medications Acetaminophen (Tylenol -) 650 mg PO Q6H [facility] Last Admin: 11/28/18 13:14 Dose: 650 mg Atorvastatin Calcium (Lipitor -) 40 mg PO HS [facility] Last Admin: 11/27/18 21:51 Dose: 40 mg Docusate Sodium (Colace -) 100 mg PO TID [facility] Last Admin: 11/28/18 13:14 Dose: 100 mg Losartan Potassium (Cozaar -) 25 mg PO DAILY [facility] Last Admin: 11/28/18 09:06 Dose: 25 mg Ondansetron HCl (Zofran Injection) 4 mg IVPUSH Q6H PRN PRN Reason: NAUSEA AND/OR VOMITING Oxycodone HCl (Roxicodone -) 5 mg PO Q3H PRN PRN Reason: Mild Pain 1-3 Last Admin: 11/28/18 01:32 Dose: 5 mg Oxycodone HCl (Roxicodone -) 10 mg PO Q3H PRN PRN Reason: Moderate Pain 4-6 Last Admin: 11/28/18 13:14 Dose: 10 mg Oxycodone HCl (Roxicodone -) 15 mg PO Q3H PRN PRN Reason: PAIN LEVEL 7 - 10 Last Admin: 11/27/18 17:47 Dose: 15 mg Oxycodone HCl (Oxycontin -) 10 mg PO BID [facility] Last Admin: 11/28/18 09:07 Dose: 10 mg Senna (Senna -) 2 tab PO HS PRN PRN Reason: CONSTIPATION - Objective Vital Signs: Vital Signs Temperature 98.1 F 11/28/18 14:57 Pulse Rate 100 H 11/28/18 14:57 Respiratory Rate 20 11/28/18 09:00 Blood Pressure 151/75 11/28/18 14:57 O2 Sat by Pulse Oximetry (%) 94 L 11/28/18 09:40 Constitutional: Yes: Well Nourished, No Distress Eyes: Yes: WNL HENT: Yes: WNL Neck: Yes: WNL Cardiovascular: Yes: WNL Respiratory: Yes: WNL Gastrointestinal: Yes: WNL Genitourinary: Yes: WNL Musculoskeletal: Yes: Joint Stiffness Extremities: Yes: WNL Edema: No Peripheral Pulses WNL: Yes Integumentary: Yes: WNL Wound/Incision: Yes: Clean/Dry, Well Approximated, Dressing Dry and Intact Neurological: Yes: WNL ...Motor Strength: WNL Psychiatric: Yes: WNL Labs: CBC, BMP 11/27/18 05:51 11/27/18 05:51 Assessment/Plan POD #2 s/p Lumbar laminectomy L4/5, L5/S1. Posterior Lumbar Interbody Fusion L5/ S1. Instrumentation of Posterolateral Arthrodesis. Auto/Allograft. Left iliac crest bone marrow aspirate. cont pain management. incentive spirometry. cont oxycodone, tylenol. -GI, DVT prophylaxis. -low anion gap: from reduced protein intake. -HTN: on losartan. well controlled. -ondasteron PRN for nausea -HLD: on atorvastatin -PT/OT/OOB as tolerated -oral diet. no BM. coljeremy, senna added. -blood work and meds reviewed. assessment and plan discussed with pt and his . phone calls answered. DC to rehab hopefully on Monday
[2018-11-28] MEDS ORDERED: KETOROLAC TROMETHAMINE 30 MG/1 ML VIAL IVPUSH ONE (17:30)
--- NOTE | 2018-11-28 17:38 | PN ---
Progress Note (short form) - Note Progress Note: POD#2 C/O mild incisional pain Bilateral leg pain Vitals as per chart CVS Stable RESP Clear ABD Distended Soft No flatus NEURO Wound dressing dry Neuro at base line Walked in the room PLAN Mobilise with PT PAIN mx add 1 dose Toradol Review leg pain tomorrow If still present for post op Ct scan
[2018-11-28] MEDS: ATORVASTATIN CA 40 MG TABLET (FP) PO SCH (22:21)
[2018-11-29] MEDS: oxyCODONE HCL 5 MG TABLET PO PRN ×5 (01:45→22:16)
[2018-11-29] MEDS: ACETAMINOPHEN 325 MG TABLET (FP) PO SCH ×5 (01:45→20:40)
[2018-11-29] MEDS: DOCUSATE SODIUM 100 MG CAPSULE (FP) PO SCH ×3 (06:12→21:29)
[2018-11-29] MEDS: oxyCODONE HCL 10 MG SUSTAINED ACTING TABLET PO SCH ×2 (10:20→21:30)
[2018-11-29] MEDS: LOSARTAN POTASSIUM 25 MG TABLET PO SCH (10:20)
--- NOTE | 2018-11-29 11:15 | PN ---
Progress Note, Physician Chief Complaint: C/O back pain denies chest pain, palpitations, nausea, vomiting, diarrhea - Current Medication List Current Medications: Active Medications Acetaminophen (Tylenol -) 650 mg PO Q6H [facility] Last Admin: 11/29/18 10:21 Dose: 650 mg Atorvastatin Calcium (Lipitor -) 40 mg PO HS [facility] Last Admin: 11/28/18 22:21 Dose: 40 mg Docusate Sodium (Colace -) 100 mg PO TID [facility] Last Admin: 11/29/18 06:12 Dose: 100 mg Losartan Potassium (Cozaar -) 25 mg PO DAILY [facility] Last Admin: 11/29/18 10:20 Dose: 25 mg Ondansetron HCl (Zofran Injection) 4 mg IVPUSH Q6H PRN PRN Reason: NAUSEA AND/OR VOMITING Oxycodone HCl (Roxicodone -) 5 mg PO Q3H PRN PRN Reason: Mild Pain 1-3 Last Admin: 11/28/18 01:32 Dose: 5 mg Oxycodone HCl (Roxicodone -) 10 mg PO Q3H PRN PRN Reason: Moderate Pain 4-6 Last Admin: 11/28/18 13:14 Dose: 10 mg Oxycodone HCl (Roxicodone -) 15 mg PO Q3H PRN PRN Reason: PAIN LEVEL 7 - 10 Last Admin: 11/29/18 06:14 Dose: 15 mg Oxycodone HCl (Oxycontin -) 10 mg PO BID [facility] Last Admin: 11/29/18 10:20 Dose: 10 mg Senna (Senna -) 2 tab PO HS PRN PRN Reason: CONSTIPATION - Objective Vital Signs: Vital Signs Temperature 98.3 F 11/29/18 07:55 Pulse Rate 92 H 11/29/18 07:55 Respiratory Rate 21 H 11/29/18 07:55 Blood Pressure 130/60 11/29/18 07:55 O2 Sat by Pulse Oximetry (%) 95 11/28/18 21:00 Constitutional: Yes: Well Nourished Eyes: Yes: WNL HENT: Yes: WNL Neck: Yes: WNL Cardiovascular: Yes: WNL Respiratory: Yes: WNL Gastrointestinal: Yes: WNL Genitourinary: Yes: WNL Musculoskeletal: Yes: Joint Stiffness Extremities: Yes: WNL Edema: No Peripheral Pulses WNL: Yes Integumentary: Yes: WNL Wound/Incision: Yes: Clean/Dry, Well Approximated, Dressing Dry and Intact Neurological: Yes: WNL ...Motor Strength: WNL Psychiatric: Yes: WNL Labs: CBC, BMP 11/27/18 05:51 11/27/18 05:51 Assessment/Plan POD #3 s/p Lumbar laminectomy L4/5, L5/S1. Posterior Lumbar Interbody Fusion L5/ S1. Instrumentation of Posterolateral Arthrodesis. Auto/Allograft. Left iliac crest bone marrow aspirate. cont pain management. incentive spirometry. cont oxycodone, tylenol. -GI, DVT prophylaxis. -low anion gap: from reduced protein intake. -HTN: on losartan. well controlled. -ondasteron PRN for nausea -HLD: on atorvastatin -PT/OT/OOB as tolerated -oral diet. no BM. timmy kohler added. -blood work and meds reviewed. assessment and plan discussed with pt and his . phone calls answered. AM labs ordered. DC to rehab possibly tomorrow
--- NOTE | 2018-11-29 13:05 | PN ---
Progress Note (short form) - Note Progress Note: POD#3 C/O mild incisional pain Bilateral leg pain much improved mild anterior thigh pain ?meralgia post op Vitals as per chart CVS Stable RESP Clear ABD Distended Soft Passed flatus NEURO Wound dressing dry Neuro at base line Walked in the room PLAN Mobilise with PT PAIN mx add 1 dose Toradol D/C Planning Adira
[2018-11-29] MEDS: ATORVASTATIN CA 40 MG TABLET (FP) PO SCH (21:30)
[2018-11-30] MEDS: oxyCODONE HCL 5 MG TABLET PO PRN ×4 (01:46→19:46)
[2018-11-30] MEDS: ACETAMINOPHEN 325 MG TABLET (FP) PO SCH ×4 (01:48→19:45)
[2018-11-30] MEDS: DOCUSATE SODIUM 100 MG CAPSULE (FP) PO SCH ×3 (06:07→21:04)
[2018-11-30 07:19] LABS: BASO % 0.7 % (0-2.0); HEMATOCRIT 38.1 % (35.4-49); HEMOGLOBIN 12.2 GM/dL (11.7-16.9); LYMPH % 16.9 % (8-40); MCH 25.1 pg (25.7-33.7); MCHC 32.1 g/dl (32.0-35.9); MONO % 13.4 % (3.8-10.2); PLATELET COUNT 298 K/MM3 (134-434); RBC 4.89 M/mm3 (4.00-5.60); WHITE BLOOD COUNT 10.6 K/mm3 (4.0-10.0)
[2018-11-30 08:21] LABS: ALBUMIN 2.4 g/dl (3.4-5.0); BLOOD UREA NITROGEN 14.7 mg/dL (7-18); CALCIUM 8.3 mg/dL (8.5-10.1); CREATININE 0.5 mg/dL (0.55-1.3); POTASSIUM 4.1 mmol/L (3.5-5.1); TOT PROT 6.7 g/dl (6.4-8.2)
[2018-11-30] MEDS: LOSARTAN POTASSIUM 25 MG TABLET PO SCH (09:00)
[2018-11-30] MEDS: oxyCODONE HCL 10 MG SUSTAINED ACTING TABLET PO SCH ×2 (09:00→21:04)
--- NOTE | 2018-11-30 09:12 | DS ---
"Physical Examination Vital Signs: Vital Signs Temperature 97.9 F 11/30/18 06:00 Pulse Rate 85 11/30/18 06:00 Respiratory Rate 20 11/29/18 20:50 Blood Pressure 146/79 11/30/18 06:00 O2 Sat by Pulse Oximetry (%) 96 11/29/18 21:00 Constitutional: Yes: Well Nourished Eyes: Yes: WNL HENT: Yes: WNL Neck: Yes: WNL Cardiovascular: Yes: WNL Respiratory: Yes: WNL Gastrointestinal: Yes: WNL Renal/: Yes: WNL Musculoskeletal: Yes: Back Pain Extremities: Yes: WNL Edema: No Peripheral Pulses WNL: Yes Integumentary: Yes: WNL Wound/Incision: Yes: Clean/Dry, Well Approximated Neurological: Yes: WNL ...Motor Strength: WNL Labs: CBC, BMP 11/30/18 05:05 11/30/18 05:05 Discharge Summary Reason For Visit: SPINAL STENOSIS Current Active Problems Degenerative lumbar spinal stenosis (Acute) HTN (hypertension) (Acute) Hyperlipidemia (Acute) Condition: Stable - Instructions Diet, Activity, Other Instructions: Post Operative Instructions Physical Activity Resume your normal everyday activity as tolerated. No heavy lifting or exercise until seen by your surgeon. You may walk unlimited amounts and climb stairs. You may resume driving the car when you feel safe and comfortable behind the wheel and you are no longer wearing your brace. Do not operate a vehicle while taking narcotic medication. Brace You had back surgery, wear TLSO Brace whenever out of bed. May remove to sleep and shower. Wound Care Keep your incision clean, dry and covered at all times. Apply an occlusive dressing (Saran wrap or Tegaderm) when showering to avoid getting your incision wet. Do not submerge incision or apply ointments or creams. The terry will be removed in the office in 10-14 days post-op. Diet There are no dietary restrictions. Eat healthy, high-fiber foods. Drink 6-8 glasses of liquid each day. This will assist in keeping your bowels regular. Pain Management You may take Tylenol or acetaminophen. Any pain prescription medication ordered should be taken as prescribed for moderate to severe pain. Avoid any ibuprofen (Motrin, Advil, Aleve, Toradol, etc) for 3 months unless otherwise discussed with your surgeon. Call Dr Boateng for any of the following: Severe pain not relieved by medication Fever of 101 or higher Excessive bleeding or drainage on dressing Inability to urinate Any chest pain or shortness of breath, seek Emergency Care. Please call the office at to confirm your post-op appointment for the week following surgery. [facility]: This report was requested by: Ricardo Mcclelland | Reference #: [id number] Disposition: HOME - Home Medications Comprehensive Discharge Medication List: Ambulatory Orders Atorvastatin Ca [Lipitor] 40 mg PO HS 11/26/18 Losartan Potassium 25 mg PO DAILY 11/26/18 Oxycodone HCl 30 mg PO PRN PRN 11/26/18"
--- NOTE | 2018-11-30 11:15 | PN ---
Progress Note (short form) - Note Progress Note: POD#4 Pt with pain to bilateral lower legs. No tingling/numbness. OOB and ambulating to hallway. Voiding without difficulty and had a BM. Vital Signs Period Temp Pulse Resp BP Sys/[place] Pulse Ox Last 24 Hr 97.9 F-98.9 F 85-101 18-20 142-151/71-79 96 GEN: A&0x3, NAD CV: RRR Lungs: CTA b/l ABD: soft, non-distended, non-tender BACK: Surgical dressing intact c/d/i. Neuro: 09/30 dorsi/plantar felxion b/l. EHL b/l. LE: No calf tenderness or swelling noted b/l CBC, BMP 11/30/ 05:05 11/30/18 05:05 A/p: 63 yo male s/p Lumbar laminectomy L4/5, L5/S1. Posterior Lumbar Interbody Fusion L5/S1. Instrumentation of Posterolateral Arthrodesis. Auto/Allograft. Left iliac crest bone marrow aspirate. Pt plan for discharge to rehab Surgical dressing to remain intact, follow-up with Dr Botaeng in the office next week() call to schedule an appointment NO BATH/SHOWERS until seen in the office D/w Dr. Boateng
[2018-11-30] MEDS: ATORVASTATIN CA 40 MG TABLET (FP) PO SCH (21:04)
[2018-12-01] MEDS: ACETAMINOPHEN 325 MG TABLET (FP) PO SCH ×4 (01:33→19:55)
[2018-12-01] MEDS: oxyCODONE HCL 5 MG TABLET PO PRN ×3 (01:34→18:22)
[2018-12-01] MEDS: DOCUSATE SODIUM 100 MG CAPSULE (FP) PO SCH ×3 (06:08→21:00)
[2018-12-01] MEDS: LOSARTAN POTASSIUM 25 MG TABLET PO SCH (10:44)
[2018-12-01] MEDS: oxyCODONE HCL 10 MG SUSTAINED ACTING TABLET PO SCH ×2 (11:15→21:00)
--- NOTE | 2018-12-01 17:28 | PN ---
Progress Note, Physician Chief Complaint: C/O back pain denies chest pain, palpitations, nausea, vomiting, diarrhea - Current Medication List Current Medications: Active Medications Acetaminophen (Tylenol -) 650 mg PO Q6H [facility] Last Admin: 12/01/18 13:24 Dose: 650 mg Atorvastatin Calcium (Lipitor -) 40 mg PO HS [facility] Last Admin: 11/30/18 21:04 Dose: 40 mg Docusate Sodium (Colace -) 100 mg PO TID [facility] Last Admin: 12/01/18 13:25 Dose: 100 mg Losartan Potassium (Cozaar -) 25 mg PO DAILY [facility] Last Admin: 12/01/18 10:44 Dose: 25 mg Ondansetron HCl (Zofran Injection) 4 mg IVPUSH Q6H PRN PRN Reason: NAUSEA AND/OR VOMITING Oxycodone HCl (Roxicodone -) 5 mg PO Q3H PRN PRN Reason: Mild Pain 1-3 Last Admin: 11/28/18 01:32 Dose: 5 mg Oxycodone HCl (Roxicodone -) 10 mg PO Q3H PRN PRN Reason: Moderate Pain 4-6 Last Admin: 11/28/18 13:14 Dose: 10 mg Oxycodone HCl (Roxicodone -) 15 mg PO Q3H PRN PRN Reason: PAIN LEVEL 7 - 10 Last Admin: 12/01/18 08:54 Dose: 15 mg Oxycodone HCl (Oxycontin -) 10 mg PO BID [facility] Last Admin: 12/01/18 11:15 Dose: 10 mg Senna (Senna -) 2 tab PO HS PRN PRN Reason: CONSTIPATION Last Admin: 11/30/18 21:04 Dose: 2 tab - Objective Vital Signs: Vital Signs Temperature 98.2 F 12/01/18 10:00 Pulse Rate 81 12/01/18 10:00 Respiratory Rate 20 12/01/18 10:00 Blood Pressure 160/74 12/01/18 10:00 O2 Sat by Pulse Oximetry (%) 95 12/01/18 09:00 Constitutional: Yes: Well Nourished, No Distress Eyes: Yes: WNL HENT: Yes: WNL Neck: Yes: WNL Cardiovascular: Yes: WNL Respiratory: Yes: WNL Gastrointestinal: Yes: WNL Genitourinary: Yes: WNL Musculoskeletal: Yes: Back Pain Extremities: Yes: WNL Edema: Yes Peripheral Pulses WNL: Yes Integumentary: Yes: WNL Wound/Incision: Yes: Clean/Dry, Well Approximated, Dressing Dry and Intact Neurological: Yes: WNL ...Motor Strength: WNL Psychiatric: Yes: WNL Labs: CBC, BMP 11/30/18 05:05 11/30/18 05:05 Assessment/Plan POD #3 s/p Lumbar laminectomy L4/5, L5/S1. Posterior Lumbar Interbody Fusion L5/ S1. Instrumentation of Posterolateral Arthrodesis. Auto/Allograft. Left iliac crest bone marrow aspirate. cont pain management. incentive spirometry. cont oxycodone, tylenol. -LE edema: venous duplex done. no DVT -GI, DVT prophylaxis. -low anion gap: from reduced protein intake. -HTN: on losartan. well controlled. -ondasteron PRN for nausea -HLD: on atorvastatin -PT/OT/OOB as tolerated -oral diet. no BM. colace, senna added. -blood work and meds reviewed. assessment and plan discussed with pt and his . phone calls answered. AM labs ordered. DC to rehab hopefully on Mondya. worker's comp case. social work on case.
[2018-12-01] MEDS: ATORVASTATIN CA 40 MG TABLET (FP) PO SCH (21:00)
[2018-12-02] MEDS: ACETAMINOPHEN 325 MG TABLET (FP) PO SCH ×4 (02:34→21:12)
[2018-12-02] MEDS: DOCUSATE SODIUM 100 MG CAPSULE (FP) PO SCH ×3 (05:13→21:12)
[2018-12-02] MEDS: oxyCODONE HCL 10 MG SUSTAINED ACTING TABLET PO SCH ×2 (09:28→21:12)
[2018-12-02] MEDS: LOSARTAN POTASSIUM 25 MG TABLET PO SCH (09:29)
--- NOTE | 2018-12-02 10:44 | PN ---
Progress Note, Physician Chief Complaint: C/O back pain denies chest pain, palpitations, nausea, vomiting, diarrhea - Current Medication List Current Medications: Active Medications Acetaminophen (Tylenol -) 650 mg PO Q6H [facility] Last Admin: 12/02/18 08:05 Dose: Not Given Atorvastatin Calcium (Lipitor -) 40 mg PO HS [facility] Last Admin: 12/01/18 21:00 Dose: 40 mg Docusate Sodium (Colace -) 100 mg PO TID [facility] Last Admin: 12/02/18 05:13 Dose: 100 mg Losartan Potassium (Cozaar -) 25 mg PO DAILY [facility] Last Admin: 12/02/18 09:29 Dose: 25 mg Ondansetron HCl (Zofran Injection) 4 mg IVPUSH Q6H PRN PRN Reason: NAUSEA AND/OR VOMITING Oxycodone HCl (Roxicodone -) 5 mg PO Q3H PRN PRN Reason: Mild Pain 1-3 Last Admin: 12/01/18 18:22 Dose: 5 mg Oxycodone HCl (Roxicodone -) 10 mg PO Q3H PRN PRN Reason: Moderate Pain 4-6 Last Admin: 11/28/18 13:14 Dose: 10 mg Oxycodone HCl (Roxicodone -) 15 mg PO Q3H PRN PRN Reason: PAIN LEVEL 7 - 10 Last Admin: 12/01/18 08:54 Dose: 15 mg Oxycodone HCl (Oxycontin -) 10 mg PO BID [facility] Last Admin: 12/02/18 09:28 Dose: 10 mg Senna (Senna -) 2 tab PO HS PRN PRN Reason: CONSTIPATION Last Admin: 11/30/18 21:04 Dose: 2 tab - Objective Vital Signs: Vital Signs Temperature 98.3 F 12/02/18 09:30 Pulse Rate 91 H 12/02/18 09:30 Respiratory Rate 18 12/02/18 09:30 Blood Pressure 127/74 12/02/18 09:30 O2 Sat by Pulse Oximetry (%) 97 12/01/18 21:00 Constitutional: Yes: Well Nourished, No Distress, Calm Eyes: Yes: WNL HENT: Yes: WNL Neck: Yes: WNL Cardiovascular: Yes: WNL Respiratory: Yes: WNL Musculoskeletal: Yes: Back Pain Extremities: Yes: WNL Edema: No Peripheral Pulses WNL: Yes Integumentary: Yes: WNL Wound/Incision: Yes: Clean/Dry, Well Approximated, Dressing Dry and Intact Neurological: Yes: WNL ...Motor Strength: WNL Psychiatric: Yes: WNL Labs: CBC, BMP 11/30/18 05:05 11/30/18 05:05 Assessment/Plan POD #4 s/p Lumbar laminectomy L4/5, L5/S1. Posterior Lumbar Interbody Fusion L5/ S1. Instrumentation of Posterolateral Arthrodesis. Auto/Allograft. Left iliac crest bone marrow aspirate. cont pain management. incentive spirometry. cont oxycodone, tylenol. -LE edema: venous duplex done. no DVT -GI, DVT prophylaxis. -low anion gap: from reduced protein intake. -HTN: on losartan. well controlled. -ondasteron PRN for nausea -HLD: on atorvastatin -PT/OT/OOB as tolerated -oral diet. no BM. colace, senna added. -blood work and meds reviewed. assessment and plan discussed with pt and his . phone calls answered. AM labs ordered. DC to rehab hopefully tomorrow. worker's comp case. social work on case.
[2018-12-02] MEDS: ATORVASTATIN CA 40 MG TABLET (FP) PO SCH (21:12)
[2018-12-03] MEDS: ACETAMINOPHEN 325 MG TABLET (FP) PO SCH ×2 (02:00→06:51)
[2018-12-03] MEDS: DOCUSATE SODIUM 100 MG CAPSULE (FP) PO SCH (06:50)
[2018-12-03] MEDS: oxyCODONE HCL 10 MG SUSTAINED ACTING TABLET PO SCH (10:15)
[2018-12-03] MEDS: LOSARTAN POTASSIUM 25 MG TABLET PO SCH (10:19)
[2018-12-03 10:20] VITALS: BP 125/70; PULSE 76; TEMP 97.9
--- NOTE | 2018-12-03 15:13 | DS ---
"Physical Examination Vital Signs: Vital Signs Temperature 97.9 F 12/03/18 10:19 Pulse Rate 76 12/03/18 10:19 Respiratory Rate 17 12/03/18 10:19 Blood Pressure 125/70 12/03/18 10:19 O2 Sat by Pulse Oximetry (%) 96 12/03/18 09:00 Constitutional: Yes: Well Nourished, No Distress, Calm Eyes: Yes: WNL HENT: Yes: WNL Neck: Yes: WNL Cardiovascular: Yes: WNL Respiratory: Yes: WNL Gastrointestinal: Yes: WNL Renal/: Yes: WNL Musculoskeletal: Yes: Back Pain Extremities: Yes: WNL Edema: No Peripheral Pulses WNL: Yes Integumentary: Yes: WNL Wound/Incision: Yes: Clean/Dry, Well Approximated, Dressing Dry and Intact Neurological: Yes: WNL ...Motor Strength: WNL Psychiatric: Yes: WNL Labs: CBC, BMP 11/30/18 05:05 11/30/18 05:05 Discharge Summary Reason For Visit: SPINAL STENOSIS Hospital Course: POD #5 s/p Lumbar laminectomy L4/5, L5/S1. Posterior Lumbar Interbody Fusion L5/ S1. Instrumentation of Posterolateral Arthrodesis. Auto/Allograft. Left iliac crest bone marrow aspirate. cont pain management. incentive spirometry. cont oxycodone, tylenol. -LE edema: venous duplex done. no DVT -GI, DVT prophylaxis. -low anion gap: from reduced protein intake. -HTN: on losartan. well controlled. -ondasteron PRN for nausea -HLD: on atorvastatin -PT/OT/OOB as tolerated -oral diet. no BM. colace, senna added. DC home Condition: Stable - Instructions Diet, Activity, Other Instructions: Post Operative Instructions Physical Activity Resume your normal everyday activity as tolerated. No heavy lifting or exercise until seen by your surgeon. You may walk unlimited amounts and climb stairs. You may resume driving the car when you feel safe and comfortable behind the wheel and you are no longer wearing your brace. Do not operate a vehicle while taking narcotic medication. Brace You had back surgery, wear TLSO Brace whenever out of bed. May remove to sleep and shower. Wound Care Keep your incision clean, dry and covered at all times with the original surgical dressing. If it becomes loose or is falling off, remove and cover with dry gauze/tegaderm at all times. NO BATHS OR SHOWERS until seen by Dr. Boateng in the office. Follow-up in the office next with Dr. Boateng, call to schedule an appointment. Diet There are no dietary restrictions. Eat healthy, high-fiber foods. Drink 6-8 glasses of liquid each day. This will assist in keeping your bowels regular. Pain Management You may take Tylenol or acetaminophen. Any pain prescription medication ordered should be taken as prescribed for moderate to severe pain. Avoid any ibuprofen (Motrin, Advil, Aleve, Toradol, etc) for 3 months unless otherwise discussed with your surgeon. Call Dr Boateng for any of the following: Severe pain not relieved by medication Fever of 101 or higher Excessive bleeding or drainage on dressing Inability to urinate Any chest pain or shortness of breath, seek Emergency Care. Please call the office at to confirm your post-op appointment for the week following surgery. [facility] [place] RESP THER: This report was requested by: Ricardo Mcclelland | Reference #: [id number] Disposition: HOME - Home Medications Comprehensive Discharge Medication List: Ambulatory Orders Atorvastatin Ca [Lipitor] 40 mg PO HS 11/26/18 Losartan Potassium 25 mg PO DAILY 11/26/18 Docusate Sodium [Colace -] 100 mg PO TID capsule 11/30/18 Sennosides [Senna -] 2 tab PO HS PRN tablet 11/30/18 oxyCODONE HCL [Roxicodone -] 15 mg PO Q3H PRN tablet MDD 8 11/30/18"
== END 2018-12-03 12:11 | disposition home or self-care (01) | DRG 304 ==
LOC: JSAMEDAYSX 06:23 → JICU 12:58 → J6S 11-27 17:41
PROVIDERS: ADMIT Orthopaedic Surgery Orthopaedic Surgery of the Spine; ATTEND Internal Medicine
PROC: 0SG1071 Fusion of 2 or more Lumbar Vertebral Joints with Autologous Tissue Substitute, Posterior Approach, Posterior Column, Open Approach (ICD-10-PCS; 2018-11-26)
PROC: 00NY0ZZ Release Lumbar Spinal Cord, Open Approach (ICD-10-PCS; 2018-11-26)
PROC: 0SG30AJ Fusion of Lumbosacral Joint with Interbody Fusion Device, Posterior Approach, Anterior Column, Open Approach (ICD-10-PCS; 2018-11-26)
PROC: 0SG3071 Fusion of Lumbosacral Joint with Autologous Tissue Substitute, Posterior Approach, Posterior Column, Open Approach (ICD-10-PCS; 2018-11-26)
PROC: B01BZZZ Fluoroscopy of Spinal Cord (ICD-10-PCS; 2018-11-26)
PROC: 07DR3ZX Extraction of Iliac Bone Marrow, Percutaneous Approach, Diagnostic (ICD-10-PCS; 2018-11-26)
PROC: 4A1004G Monitoring of Central Nervous Electrical Activity, Intraoperative, Open Approach (ICD-10-PCS; 2018-11-26)
PROC: 0SG10AJ Fusion of 2 or more Lumbar Vertebral Joints with Interbody Fusion Device, Posterior Approach, Anterior Column, Open Approach (ICD-10-PCS; principal; 2018-11-26 08:00)
DX: M48.061 Spinal stenosis, lumbar region without neurogenic claudication (principal); I10 Essential (primary) hypertension; E78.5 Hyperlipidemia, unspecified; R60.0 Localized edema; M53.2X6 Spinal instabilities, lumbar region; M53.2X7 Spinal instabilities, lumbosacral region
CPT/HCPCS: 36415; 72100-TC-FY; 76000-TC-FY; 80048; 80053; 85025; 85027; 86850; 86900; 86901; 88304-TC; 93970-TC; 97116-GP; 97162-GP; J1644

== ENCOUNTER 2019-06-05 10:43 | Day surgery (SDC) | payer OTHER ==
[2019-06-03 16:41] VITALS: BMI 30.4
[2019-06-05] MEDS ORDERED: PROPOFOL 20 ML ONE ×2 (12:23)
[2019-06-05 14:07] VITALS: TEMP 98.2
[2019-06-05 14:32] VITALS: BP 133/78; PULSE 68
== END 2019-06-05 14:30 | disposition home or self-care (01) ==
LOC: FASU 10:43
PROVIDERS: ATTEND Internal Medicine Gastroenterology
PROC: 0DJD8ZZ Inspection of Lower Intestinal Tract, Via Natural or Artificial Opening Endoscopic (ICD-10-PCS; principal; 2019-06-05 13:23)
DX: Z12.11 Encounter for screening for malignant neoplasm of colon (principal); K64.1 Second degree hemorrhoids; K57.30 Diverticulosis of large intestine without perforation or abscess without bleeding